=== PATIENT | female | born 1950 | race Caucasian/White ===

== ENCOUNTER 2016-10-29 08:55 | Outpatient (CLI) | payer OTHER | END 2016-10-29 08:56 | disposition home or self-care (01) | DX: R92.8 Other abnormal and inconclusive findings on diagnostic imaging of breast (principal) ==

== ENCOUNTER 2016-11-27 08:29 | Outpatient (CLI) | payer OTHER | END 2016-11-27 08:30 | disposition home or self-care (01) | DX: E03.9 Hypothyroidism, unspecified (principal); N95.1 Menopausal and female climacteric states ==

== ENCOUNTER 2017-02-07 12:57 | Outpatient (CLI) | payer OTHER | END 2017-02-07 12:58 | disposition short-term general hospital (02) | LOC: EMS 12:57 | PROVIDERS: ATTEND Surgery | DX: R10.9 Unspecified abdominal pain (principal); R07.81 Pleurodynia; V80.010A Animal-rider injured by fall from or being thrown from horse in noncollision accident, initial encounter | CPT/HCPCS: A0170; A0425; A0427 ==

== ENCOUNTER 2017-02-23 13:26 | Outpatient (CLI) | payer OTHER | END 2017-02-23 13:27 | disposition home or self-care (01) | LOC: LAB.F 13:26 | PROVIDERS: ATTEND Naturopath | DX: N95.1 Menopausal and female climacteric states (principal); E03.9 Hypothyroidism, unspecified | CPT/HCPCS: 36415; 82728 ==

== ENCOUNTER 2017-04-21 18:51 | Outpatient (CLI) | payer OTHER | END 2017-04-21 18:52 | disposition critical access hospital (66) | LOC: EMS 18:51 | PROVIDERS: ATTEND Surgery | DX: M54.2 Cervicalgia (principal); W22.8XXA Striking against or struck by other objects, initial encounter; Y93.52 Activity, horseback riding; Y92.009 Unspecified place in unspecified non-institutional (private) residence as the place of occurrence of the external cause | CPT/HCPCS: A0425; A0429 ==

== ENCOUNTER 2017-04-21 19:31 | Emergency (ER) | payer OTHER ==
[2017-04-21] MEDS ORDERED: KETOROLAC 60 MG/2 ML VIAL IM STA (20:22)
--- NOTE | 2017-04-21 20:37 | CT Preliminary Report ---
Exam: CT Head W/O IMPRESSION: No acute intracranial abnormality. [facility] SITE ID: [id number]
--- NOTE | 2017-04-21 20:39 | CT Preliminary Report ---
Exam: CT Cervical Spine W/O IMPRESSION: 1. No acute bony abnormality. 2. Greatest degree of central spinal canal stenosis is [id number] at C5-C6. 3. Multilevel marked bony neuroforaminal compromise. [facility] SITE ID: [id number]
--- NOTE | 2017-04-21 20:39 | CT Report ---
EXAM: CT HEAD EXAM DATE: 04/21/2017 08:02 PM. CLINICAL HISTORY: Fall off horse, head/neck injury. COMPARISON: None. TECHNIQUE: Multiaxial CT images were obtained from the foramen magnum to the vertex. IV contrast: Non e. Reformats: Coronal. In accordance with CT protocol optimization, one or more of the following dose reduction techniques w ere utilized for this exam: automated exposure control, adjustment of mA and/or KV based on patient s ize, or use of iterative reconstructive technique. FINDINGS: Parenchyma: No intraparenchymal hemorrhage. No evidence of mass, midline shift, or CT findings of inf arction. Roblero-white differentiation is distinct. Extraaxial Spaces: Normal for age. No subdural or epidural collections identified. Ventricles: Normal in size and position. Sinuses: Imaged paranasal sinuses, orbits, and mastoids show no significant abnormality. Bones: No evidence of fracture or calvarial defect. Other: None. IMPRESSION: No acute intracranial abnormality. [facility] Referring Provider Line: [phone] SITE ID: [id number]
[2017-04-21 20:41] VITALS: BP 123/73
--- NOTE | 2017-04-21 21:01 | CT Report ---
EXAM: CT CERVICAL SPINE WITHOUT CONTRAST DATE: 04/21/2017 08:23 PM HISTORY: Patient hit head on tree when riding horse. Patient heard and felt a "crack" as her head whi pped back. Numbness and dysesthesias bilateral fourth and fifth fingers. COMPARISONS: None. TECHNIQUE: Thin-section axial images were acquired of the cervical spine without contrast. Post-proce ssing: Coronal and sagittal reformats. Other: None. In accordance with CT protocol optimization, one or more of the following dose reduction techniques w ere utilized for this exam: automated exposure control, adjustment of mA and/or KV based on patient s ize, or use of iterative reconstructive technique. FINDINGS: Alignment: Normal. No scoliosis or spondylolisthesis. Bones: No fracture or bone lesion. Interspace Levels/Facets: C1-C2: Unremarkable. C2-C3: Normal caliber. Old small right-sided disk herniation. Marked right C2-C3 neural foraminal com promise. C3-C4: Mildly narrowed. Moderate bilateral C3-C4 bony neural foraminal compromise. C4-C5: Moderately to markedly narrowed with vacuum disk phenomena. Marked bilateral C4-C5 bony neural foraminal compromise. C5-C6: Moderate to markedly narrowed with vacuum disk phenomena. Old moderate left-sided disk herniat ion with mild to moderate central spinal canal stenosis. Marked bilateral C5-C6 bony neural foraminal compromise. C6-C7: Moderate to markedly narrowed with vacuum disk phenomena. Marked bilateral C6-C7 neural forami nal compromise. Mild central spinal canal stenosis. C7-T1: Marked degenerative changes right C7-T1 facet. Moderate to marked bilateral C7-T1 neural rosi inal compromise. Musculature: Normal. No fatty atrophy. Other: The paravertebral and prevertebral soft tissues are normal. The lung apices are clear. IMPRESSION: 1. No acute bony abnormality. 2. Greatest degree of central spinal canal stenosis is [id number] at C5-C6. 3. Multilevel marked bony neural foraminal compromise. [facility] Referring Provider Line: [phone] SITE ID: [id number]
[2017-04-21] MEDS ORDERED: HYDROcod/ACET 5/325 Prepack 6 PO ONE ×2 (21:27→21:37)
--- NOTE | 2017-04-21 21:30 | ED Physician Documentation ---
PD HPI HEAD INJURY - Stated complaint Stated Complaint: FALL FROM HORSE/HEAD INJU - Chief complaint Chief Complaint: Trauma Hd/Nk - History obtained from History obtained from: Patient, EMS - History of Present Illness Mechanism of head injury: Fell, Other (hit head on an awning when riding her horse tonight. Was wearing a helmet.) Where head injury occurred: Home Timing - onset: How many hours ago (1) Pain level max: 7 Pain level now: 6 Location of injury: Front, Back Quality of pain: Throbbing, Aching, Dull Associated symptoms: Neck pain (Patient states posterior neck pain. States heard a snap). No: LOC, AMS, Amnesia, Nausea / vomiting, Paresthesias, Seizures , Ear drainage, Nasal drainage Symptoms improve with: Rest Symptoms worsen with: Palpation, Movement Contributing factors: No: Anticoagulated, Intoxicated Similar symptoms before: Has not had sx before Recently seen: Not recently seen Review of Systems Constitutional: denies: Fever Eyes: denies: Decreased vision, Photophobia GI: denies: Abdominal Pain, Nausea, Vomiting Musculoskeletal: denies: Back pain, Extremity pain, Joint pain Neurologic: denies: Focal weakness, Numbness, Confused, Altered mental status PD PAST MEDICAL HISTORY - Past Medical History Past Medical History: Yes Cardiovascular: None Respiratory: Asthma Endocrine/Autoimmune: HyPOthyroidism GI: None HEENT: None Psych: Depression Musculoskeletal: None Derm: None - Past Surgical History Past Surgical History: Yes /ENDOSCOPY TECH: Hysterectomy - Present Medications Home Medications: Ambulatory Orders Medication Instructions Recorded Confirmed Escitalopram Oxalate [Lexapro] 20 mg PO DAILY 04/21/17 04/21/17 Fluticasone [Flonase] 1 sprays MISTY DAILY 04/21/17 04/21/17 Levothyroxine Sodium [Synthroid] 100 mcg PO DAILY 04/21/17 04/21/17 Liothyronine [Cytomel] 5 mcg PO QDAC 04/21/17 04/21/17 - Allergies Allergies/Adverse Reactions: Allergies Allergy/AdvReac Type Severity Reaction Status Date / Time amiodarone Allergy Unknown Verified 04/21/17 19:49 soy Allergy Rash Verified 04/21/17 20:14 wheat Allergy Rash Verified 04/21/17 20:14 morphine AdvReac Rash Verified 04/21/17 19:49 NSAIDS (Non-Steroidal AdvReac Respiratory Verified 04/21/17 19:49 Anti-Inflamma Sulfa (Sulfonamide AdvReac Unknown Verified 04/21/17 19:49 Antibiotics) Rhymol Allergy Unknown Uncoded 04/21/17 19:49 - Social History Does the pt smoke?: No Smoking Status: Never smoker Does the pt drink ETOH?: No Does the pt have substance abuse?: No - Immunizations Immunizations are current?: Yes - POLST Patient has POLST: No PD ED PE NORMAL - Vitals Vital signs reviewed: Yes - General General: Alert and oriented X 3, No acute distress, Well developed/nourished - HEENT HEENT: Atraumatic (No scalp hematomas or abrasions. There is tenderness to the occipital area of the skull. 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, No motor deficit, No sensory deficit, Normal speech - Psych Psych: Normal mood, Normal affect Results - Vitals Vitals: Oxygen O2 Source Room air - Rads (name of study) CT head Radiology: Prelim report reviewed, EMP read contemporaneously, See rad report ( No acute intracranial abnormality) CT cervical spine Radiology: Prelim report reviewed, EMP read contemporaneously, See rad report ( No acute fracture) PD MEDICAL DECISION MAKING - ED course Complexity details: reviewed results, re-evaluated patient, considered differential, d/w patient ED course: Patient is a 66-year-old female who presents to the emergency department after hitting her head while riding a horse. No acute findings on CT scan of the head or neck. No other tenderness on exam. Normal neurological examination. Abdomen remained soft, nontender nondistended on serial exam. Toradol improved her pain. We will continue supportive care and follow-up with her doctor for further evaluation. Patient counseled regarding signs and symptoms for which I believe and urgent re-evaluation would be necessary. Patient with good understanding of and agreement to plan and is comfortable going home at this time This document was made in part using voice recognition software. While efforts are made to proofread this document, sound alike and grammatical errors may occur. Patient is ambulating well in the emergency department. Departure - Departure Disposition: 01 Home, Self Care Clinical Impression: Neck muscle strain Qualifiers: Encounter type: initial encounter Qualified Code(s): S16.1XXA - Strain of muscle, fascia and tendon at neck level, initial encounter Closed head injury Qualifiers: Encounter type: initial encounter Qualified Code(s): S09.90XA - Unspecified injury of head, initial encounter Condition: Good Instructions: ED Head Injury Closed, ED Sprain Strain Neck Follow-Up: Mara Carvajal ND [Primary Care Provider] - Within 1 week Comments: Return if you worsen. This should improve over the next few days. Do not drink alcohol or drive while on narcotic pain medicine. Note that many narcotic pain relievers also contain tylenol/acetaminophen. Please ensure that your total dose of acetaminophen from all sources does not exceed 3 grams (3000mg) per day. You may constipated on this medication, take a stool softener such as "Colace" twice a day while you are on it. Also recommend a opse-kec-nahntom laxative such as senna or MiraLAX any day that you do not have a bowel movement. If you received narcotic pain medication in the emergency department, do not drive or operate machinery for the next 24 hours. Discharge Date/Time: 04/21/17 22:19
== END 2017-04-21 22:19 | disposition home or self-care (01) ==
LOC: EDUNIT# → EDSEX → ED 19:31 → SUPCPDRO 19:31 → ED 22:19
DX: S16.1XXA Strain of muscle, fascia and tendon at neck level, initial encounter (principal); S09.90XA Unspecified injury of head, initial encounter; V80.010A Animal-rider injured by fall from or being thrown from horse in noncollision accident, initial encounter
CPT/HCPCS: 70450; 72125; 96372; 99283; 99284

== ENCOUNTER 2018-02-07 15:13 | Outpatient (CLI) | payer OTHER ==
[2018-02-07 18:00] LABS: THYROID STIMULATING HORMONE 0.24 uIU/mL (0.34-5.60)
[2018-02-07 18:02] LABS: FREE T4 (FREE THYROXINE) 0.8 ng/dL (0.58-1.64)
== END 2018-02-07 15:14 | disposition home or self-care (01) ==
LOC: LAB.F 15:13
PROVIDERS: ATTEND Naturopath
DX: E03.9 Hypothyroidism, unspecified (principal); N95.1 Menopausal and female climacteric states
CPT/HCPCS: 84439; 84443; 84481

== ENCOUNTER 2018-02-08 08:00 | Outpatient (CLI) | payer OTHER | END 2018-02-08 08:01 | LOC: LAB.R 08:00 | PROVIDERS: ATTEND Naturopath | DX: Z53.9 Procedure and treatment not carried out, unspecified reason (principal) ==

== ENCOUNTER 2018-03-25 08:30 | Outpatient (CLI) | payer OTHER ==
[2018-03-25 17:50] LABS: THYROID STIMULATING HORMONE 0.24 uIU/mL (0.34-5.60)
[2018-03-25 17:52] LABS: FREE T4 (FREE THYROXINE) 0.88 ng/dL (0.58-1.64)
== END 2018-03-25 08:31 | disposition home or self-care (01) ==
LOC: LAB.F 08:30
PROVIDERS: ATTEND Naturopath
DX: E03.9 Hypothyroidism, unspecified (principal); N95.1 Menopausal and female climacteric states
CPT/HCPCS: 36415; 82670; 84439; 84443; 84481

== ENCOUNTER 2018-11-15 08:00 | Outpatient (CLI) | payer BC ==
[2018-11-15 10:50] LABS: BASOPHILS % (AUTO) 1.1 %; EOSINOPHILS # (AUTO) 0.2 10^3/uL (0.0-0.7); EOSINOPHILS % (AUTO) 4.2 %; HGB - HEMOGLOBIN 14.2 g/dL (12.0-16.0); LYMPHOCYTES # (AUTO) 1.1 10^3/uL (1.5-3.5); LYMPHOCYTES % (AUTO) 25.4 %; MEAN CORPUSCULAR HEMOGLOBIN 31.5 pg (27.0-31.0); MEAN CORPUSCULAR HGB CONC 34.6 g/dL (32.0-36.0); MEAN CORPUSCULAR VOLUME 90.9 fL (81.0-99.0); MEAN PLATELET VOLUME 8.7 fL (7.9-10.8); MONOCYTES # (AUTO) 0.4 10^3/uL (0.0-1.0); MONOCYTES % (AUTO) 8.8 %; NEUTROPHILS # (AUTO) 2.6 10^3/uL (1.5-6.6); NEUTROPHILS % (AUTO) 60.5 %; PLT - PLATELET COUNT 257 10^3/uL (130-450); RED BLOOD COUNT 4.51 10^6/uL (4.20-5.40); RED CELL DISTRIBUTION WIDTH 12.5 % (12.0-15.0); WHITE BLOOD COUNT 4.3 x10^3/uL (4.8-10.8)
[2018-11-15 11:01] LABS: ALBUMIN 3.7 g/dL (3.2-5.5); ALBUMIN/GLOBULIN RATIO 1.3 (1.0-2.2); ALKALINE PHOSPHATASE 42 IU/L (42-121); ALT ALANINE AMINOTRANSFERASE 20 IU/L (10-60); AST ASPARTATE AMINOTRANSFERASE 23 IU/L (10-42); BILIRUBIN,TOTAL 0.6 mg/dL (0.2-1.0); BUN - BLOOD UREA NITROGEN 24 mg/dL (6-20); CALCIUM 8.9 mg/dL (8.5-10.3); CARBON DIOXIDE - CO2 25 mmol/L (21-32); CHLORIDE 103 mmol/L (101-111); CHOL/HDL RATIO 2.6 (<4.4); CHOLESTEROL 180 mg/dL; CREATININE 1.1 mg/dL (0.4-1.0); GFR - MDRD 50 (>89); GLUCOSE 91 mg/dL (70-100); HDL CHOLESTEROL 68 mg/dL; LDL CHOLESTEROL,CALCULATED 94 mg/dL; LDL/HDL RATIO 1.4 (<4.4); SODIUM 136 mmol/L (135-145); TOTAL PROTEIN 6.5 g/dL (6.7-8.2); VLDL CHOLESTEROL 18 mg/dL
[2018-11-15 11:11] LABS: THYROID STIMULATING HORMONE 0.34 uIU/mL (0.34-5.60)
[2018-11-15 11:16] LABS: FERRITIN 29.9 ng/mL (11.0-306.8)
== END 2018-11-15 23:59 | disposition home or self-care (01) ==
LOC: LAB.F 08:00
PROVIDERS: ATTEND Naturopath
DX: E03.9 Hypothyroidism, unspecified (principal); N95.1 Menopausal and female climacteric states; G43.909 Migraine, unspecified, not intractable, without status migrainosus
CPT/HCPCS: 36415; 80053; 80061; 82306; 82728; 83721; 84443; 85025; 86376

== ENCOUNTER 2019-01-10 16:15 | Outpatient (CLI) | payer BC ==
--- NOTE | 2019-01-11 11:36 | DEXA Report ---
Reason: MENOPAUSAL, HYPOTHYROIDISM Procedure Date: 01/10/2019 Accession Number: [id number] / [id number] Procedure: DEX - Dexa Spine and/or Hip CPT Code: FULL RESULT: EXAM: Dexa Spine and/or Hip DATE: 01/10/2019 4:38 PM CLINICAL HISTORY: MENOPAUSAL, HYPOTHYROIDISM TECHNIQUE: Dual energy x-ray absorptiometry (DXA) was performed on a [employer] System. Regions measured are the AP Spine, femoral neck, and if needed forearm. COMPARISON: None. In accordance with the International Society for Clinical Densitometry (ISCD) guidelines, data from previous exams may be reanalyzed using current recommendations and techniques. This is done to allow a more accurate basis for comparison with the current study. FINDINGS: The data for the lumbar spine is as follows: BMD (g/cm/cm) T-SCORE Z-SCORE REGION L1 1.255 1.0 2.7 L2 1.617 3.5 5.1 L3 1.885 5.7 7.3 L4 2.033 6.9 8.6 TOTAL 1.725 4.5 6.2 NOTE: All evaluable vertebrae are used for classification The data for the hip is as follows: BMD (g/cm/cm) T-SCORE Z-SCORE REGION Neck 1.040 0.0 1.5 TOTAL 0.914 -0.7 0.5 NOTE: The femoral neck or total proximal femur, whichever is lowest, is used for classification. IMPRESSION: THE WHO CLASSIFICATION BASED ON THE INTERNATIONAL REFERENCE STANDARD IS NORMAL. THE FRACTURE RISK IS NOT INCREASED. RECOMMENDATION: Patients with diagnosis of osteoporosis or osteopenia should have regular bone mineral density assessment. For those eligible for Medicare, routine testing is allowed once every 2 years. Testing frequency can be increased for patients who have rapidly progressing disease or for those who are receiving medical therapy to restore bone mass. COMMENT: World Health Organization (WHO) definitions for osteoporosis and osteopenia: NORMAL BMD: T-score at -1.0 or higher, fracture risk is low OSTEOPENIA BMD: T-score between -1.0 and -2.5, fracture risk is increased. OSTEOPOROSIS BMD: T-score at -2.5 or lower, fracture risk is high. National Osteoporosis Foundation recommends: 1. Obtain adequate dietary calcium (at least 1200 mg per day) and vitamin D (400-800 international units per day). 2. Participate, as appropriate, in regular weightbearing and muscle-strengthening exercise. 3. Avoid tobacco use and reduce alcohol and caffeine intake. 4. For more detailed information see the website at www.NOF.org.
== END 2019-01-10 16:16 | disposition home or self-care (01) ==
LOC: DI 16:15
PROVIDERS: ATTEND Naturopath
DX: E03.9 Hypothyroidism, unspecified (principal); N95.1 Menopausal and female climacteric states
CPT/HCPCS: 77080

== ENCOUNTER 2019-01-10 16:17 | Outpatient (CLI) | payer BC ==
--- NOTE | 2019-01-11 08:16 | Mammography Report ---
Reason: SCREENING MAMMO Procedure Date: 01/10/2019 Accession Number: [id number] / [id number] Procedure: DENNIS - Screening Mammo w/Kelechi CPT Code: FULL RESULT: EXAM: Screening Mammo w/Kelechi DATE: 01/10/2019 5:06 PM CLINICAL HISTORY: Screening encounter. History of benign left breast biopsy. No reported risk factors. TECHNIQUE: (B) - Bilateral CC, laterally exaggerated CC, MLO views were obtained. COMPARISON: 10/29/2016 through 09/03/2009. PARENCHYMAL PATTERN: (D) - The breast(s) demonstrate(s) heterogeneously dense fibroglandular parenchyma. FINDINGS: A left breast biopsy marker is again seen. There are no suspicious masses, calcifications, or areas of distortion. IMPRESSION: Benign findings. BI-RADS category 2. RECOMMENDATION: (ANNUAL) - Recommend routine annual screening mammography. BI-RADS CATEGORY: (2) - Benign Findings. STANDARD QUALIFYING STATEMENTS: 1. This examination was not reviewed with the aid of Computer-Aided Detection (CAD). 2. A negative or benign imaging report should not preclude biopsy if clinically suspicious findings are present. 3. Dense breasts may obscure an underlying neoplasm. 4. This examination was reviewed with the aid of 3D breast imaging (tomosynthesis).
== END 2019-01-10 16:18 | disposition home or self-care (01) ==
LOC: DI 16:17
DX: Z12.31 Encounter for screening mammogram for malignant neoplasm of breast (principal)
CPT/HCPCS: 77063; 77067

== ENCOUNTER 2019-01-24 09:14 | Outpatient (CLI) | payer BC ==
[2019-01-24 17:27] LABS: BASOPHILS # (AUTO) 0.1 10^3/uL (0.0-0.1); BASOPHILS % (AUTO) 1.3 %; EOSINOPHILS # (AUTO) 0.1 10^3/uL (0.0-0.7); EOSINOPHILS % (AUTO) 2.1 %; HGB - HEMOGLOBIN 14.2 g/dL (12.0-16.0); LYMPHOCYTES # (AUTO) 1.2 10^3/uL (1.5-3.5); LYMPHOCYTES % (AUTO) 24.1 %; MEAN CORPUSCULAR HEMOGLOBIN 30.5 pg (27.0-31.0); MEAN CORPUSCULAR HGB CONC 33.6 g/dL (32.0-36.0); MEAN CORPUSCULAR VOLUME 90.8 fL (81.0-99.0); MEAN PLATELET VOLUME 8.4 fL (7.9-10.8); MONOCYTES # (AUTO) 0.3 10^3/uL (0.0-1.0); MONOCYTES % (AUTO) 5.6 %; NEUTROPHILS # (AUTO) 3.2 10^3/uL (1.5-6.6); NEUTROPHILS % (AUTO) 66.9 %; PLT - PLATELET COUNT 247 10^3/uL (130-450); RED BLOOD COUNT 4.66 10^6/uL (4.20-5.40); RED CELL DISTRIBUTION WIDTH 12.7 % (12.0-15.0); WHITE BLOOD COUNT 4.9 x10^3/uL (4.8-10.8)
[2019-01-24 17:40] LABS: ALBUMIN/GLOBULIN RATIO 1.5 (1.0-2.2); BILIRUBIN,TOTAL 0.7 mg/dL (0.2-1.0); CALCIUM 9.2 mg/dL (8.5-10.3); CREATININE 0.8 mg/dL (0.4-1.0); TOTAL PROTEIN 6.6 g/dL (6.7-8.2)
== END 2019-01-24 09:15 | disposition home or self-care (01) ==
LOC: LAB.F 09:14
PROVIDERS: ATTEND Registered Nurse
DX: E03.9 Hypothyroidism, unspecified (principal); R79.89 Other specified abnormal findings of blood chemistry; N95.1 Menopausal and female climacteric states; G43.909 Migraine, unspecified, not intractable, without status migrainosus
CPT/HCPCS: 36415; 80053; 82728; 84443; 85025

== ENCOUNTER 2019-04-25 18:15 | Outpatient (CLI) | payer BC | END 2019-04-25 18:16 | disposition short-term general hospital (02) | LOC: EMS 18:15 | PROVIDERS: ATTEND Surgery | DX: M25.511 Pain in right shoulder (principal); M54.6 Pain in thoracic spine; R07.89 Other chest pain; S51.811A Laceration without foreign body of right forearm, initial encounter; V80.010A Animal-rider injured by fall from or being thrown from horse in noncollision accident, initial encounter; Y93.52 Activity, horseback riding; Y92.008 Other place in unspecified non-institutional (private) residence as the place of occurrence of the external cause | CPT/HCPCS: A0425; A0427 ==

== ENCOUNTER 2019-08-31 07:05 | Outpatient (CLI) | payer BC ==
[2019-08-31 10:28] LABS: BASOPHILS # (AUTO) 0.1 10^3/uL (0.0-0.1); BASOPHILS % (AUTO) 1.7 %; EOSINOPHILS # (AUTO) 0.2 10^3/uL (0.0-0.7); EOSINOPHILS % (AUTO) 4.7 %; HGB - HEMOGLOBIN 15.1 g/dL (12.0-16.0); LYMPHOCYTES # (AUTO) 1.3 10^3/uL (1.5-3.5); LYMPHOCYTES % (AUTO) 31.7 %; MEAN CORPUSCULAR HEMOGLOBIN 31.2 pg (27.0-31.0); MEAN CORPUSCULAR HGB CONC 33.7 g/dL (32.0-36.0); MEAN CORPUSCULAR VOLUME 92.6 fL (81.0-99.0); MEAN PLATELET VOLUME 10.4 fL (7.9-10.8); MONOCYTES # (AUTO) 0.4 10^3/uL (0.0-1.0); MONOCYTES % (AUTO) 8.7 %; NEUTROPHILS # (AUTO) 2.1 10^3/uL (1.5-6.6); PLT - PLATELET COUNT 265 10^3/uL (130-450); RED BLOOD COUNT 4.84 10^6/uL (4.20-5.40); RED CELL DISTRIBUTION WIDTH 11.6 % (12.0-15.0)
[2019-08-31 11:02] LABS: THYROID STIMULATING HORMONE 0.92 uIU/mL (0.34-5.60)
[2019-08-31 11:08] LABS: FERRITIN 28.5 ng/mL (11.0-306.8)
== END 2019-08-31 07:06 | disposition home or self-care (01) ==
LOC: LAB.S 07:05
PROVIDERS: ATTEND Naturopath
DX: N95.1 Menopausal and female climacteric states (principal); E03.9 Hypothyroidism, unspecified; G43.909 Migraine, unspecified, not intractable, without status migrainosus
CPT/HCPCS: 36415; 82670; 82728; 84443; 85025

== ENCOUNTER 2019-12-12 11:50 | Outpatient (CLI) | payer BC ==
[2019-12-12 17:11] LABS: BASOPHILS % (AUTO) 0.9 %; EOSINOPHILS # (AUTO) 0.1 10^3/uL (0.0-0.7); EOSINOPHILS % (AUTO) 3.2 %; LYMPHOCYTES # (AUTO) 1.2 10^3/uL (1.5-3.5); LYMPHOCYTES % (AUTO) 27.8 %; MEAN CORPUSCULAR HEMOGLOBIN 31.5 pg (27.0-31.0); MEAN CORPUSCULAR HGB CONC 33.4 g/dL (32.0-36.0); MEAN CORPUSCULAR VOLUME 94.2 fL (81.0-99.0); MEAN PLATELET VOLUME 10.3 fL (7.9-10.8); MONOCYTES # (AUTO) 0.4 10^3/uL (0.0-1.0); MONOCYTES % (AUTO) 8.7 %; NEUTROPHILS # (AUTO) 2.6 10^3/uL (1.5-6.6); NEUTROPHILS % (AUTO) 58.9 %; PLT - PLATELET COUNT 243 10^3/uL (130-450); RED BLOOD COUNT 4.45 10^6/uL (4.20-5.40); RED CELL DISTRIBUTION WIDTH 12.3 % (12.0-15.0); WHITE BLOOD COUNT 4.4 x10^3/uL (4.8-10.8)
[2019-12-12 17:28] LABS: ALBUMIN/GLOBULIN RATIO 1.4 (1.0-2.2); ALKALINE PHOSPHATASE 36 IU/L (42-121); ALT ALANINE AMINOTRANSFERASE 40 IU/L (10-60); AST ASPARTATE AMINOTRANSFERASE 34 IU/L (10-42); BILIRUBIN,TOTAL 1.1 mg/dL (0.2-1.0); BUN - BLOOD UREA NITROGEN 23 mg/dL (6-20); CALCIUM 8.9 mg/dL (8.5-10.3); CARBON DIOXIDE - CO2 27 mmol/L (21-32); CHLORIDE 101 mmol/L (101-111); CHOL/HDL RATIO 2.6 (<4.4); CHOLESTEROL 199 mg/dL; CREATININE 0.6 mg/dL (0.4-1.0); GLUCOSE 90 mg/dL (70-100); HDL CHOLESTEROL 78 mg/dL; SODIUM 137 mmol/L (135-145); TOTAL PROTEIN 6.8 g/dL (6.7-8.2)
[2019-12-12 17:40] LABS: FERRITIN 39.8 ng/mL (11.0-306.8)
[2019-12-12 17:44] LABS: FOLATE 13.88 ng/mL (5.90 - >24.8)
== END 2019-12-12 11:51 | disposition home or self-care (01) ==
LOC: LAB.S 11:50
PROVIDERS: ATTEND Naturopath
DX: N95.1 Menopausal and female climacteric states (principal); E03.9 Hypothyroidism, unspecified
CPT/HCPCS: 36415; 80053; 80061; 82607; 82670; 82728; 82746; 83721; 85025

== ENCOUNTER 2019-12-15 20:40 | Outpatient (CLI) | payer BC | END 2019-12-15 20:41 | disposition home or self-care (01) | LOC: COV 20:40 | PROVIDERS: ATTEND Family Medicine | DX: R05 Cough (principal) ==

== ENCOUNTER 2020-02-20 07:09 | Outpatient (CLI) | payer BC ==
[2020-02-20 15:40] LABS: BASOPHILS % (AUTO) 0.8 %; EOSINOPHILS # (AUTO) 0.1 10^3/uL (0.0-0.7); EOSINOPHILS % (AUTO) 2.2 %; HGB - HEMOGLOBIN 13.4 g/dL (12.0-16.0); LYMPHOCYTES # (AUTO) 1.2 10^3/uL (1.5-3.5); MEAN CORPUSCULAR HEMOGLOBIN 30.5 pg (27.0-31.0); MEAN CORPUSCULAR HGB CONC 32.1 g/dL (32.0-36.0); MEAN CORPUSCULAR VOLUME 94.8 fL (81.0-99.0); MEAN PLATELET VOLUME 10.6 fL (7.9-10.8); MONOCYTES # (AUTO) 0.4 10^3/uL (0.0-1.0); MONOCYTES % (AUTO) 6.9 %; NEUTROPHILS # (AUTO) 3.3 10^3/uL (1.5-6.6); NEUTROPHILS % (AUTO) 65.7 %; PLT - PLATELET COUNT 225 10^3/uL (130-450)
[2020-02-20 16:15] LABS: FOLATE 16.17 ng/mL (5.90 - >24.8)
== END 2020-02-20 07:10 | disposition home or self-care (01) ==
LOC: LAB.S 07:09
PROVIDERS: ATTEND Naturopath
DX: N95.1 Menopausal and female climacteric states (principal); E53.8 Deficiency of other specified B group vitamins; E03.9 Hypothyroidism, unspecified
CPT/HCPCS: 36415; 82607; 82746; 85025

== ENCOUNTER 2020-07-31 07:29 | Outpatient (CLI) | payer BC ==
[2020-07-31 15:44] LABS: FERRITIN 32.6 ng/mL (11.0-306.8)
[2020-07-31 15:47] LABS: FOLATE 9.3 ng/mL (5.90 - >24.8)
== END 2020-07-31 07:30 | disposition home or self-care (01) ==
LOC: LAB.S 07:29
PROVIDERS: ATTEND Naturopath
DX: N95.1 Menopausal and female climacteric states (principal); E03.9 Hypothyroidism, unspecified; G43.909 Migraine, unspecified, not intractable, without status migrainosus
CPT/HCPCS: 36415; 82306; 82607; 82670; 82728; 82746

== ENCOUNTER 2020-10-08 17:10 | Outpatient (CLI) | payer BC ==
--- NOTE | 2020-10-10 09:47 | Mammography Report ---
BILATERAL DIGITAL SCREENING MAMMOGRAM 3D/2D: 10/08/2020 CLINICAL: Routine screening. Comparison is made to exams dated: 01/10/2019 mammogram, 10/29/2016 mammogram, 01/24/2016 mammogram, 01/13 mammogram, 01/03/2016 mammogram, and 11/14/2014 mammogram - [facility]. The ti ssue of both breasts is heterogeneously dense. This may lower the sensitivity of mammography. There is a biopsy clip in the left breast. No significant masses, calcifications, or other findings are seen in either breast. There has been no significant interval change. IMPRESSION: NEGATIVE There is no mammographic evidence of malignancy. A 1 year screening mammogram is recommended. This exam was interpreted at Station ID: [id number]. NOTE: For mammograms, a report in lay terms will be sent to the patient. Approximately 15% of breast malignancies will not be visualized mammographically. In the management of a palpable breast mass, a negative mammogram must not discourage biopsy of a clinically suspicious lesion. Electronically Signed By: Dom Morel M.D. [facility] [place]:10/09/2020 11:43:44 ACR BI-RADS Category 1: Negative 3341F PARENCHYMAL PATTERN: (D) - The breast(s) demonstrate(s) heterogeneously dense fibroglandular stephenie villalobos. BI-RADS CATEGORY: (1) - 1 RECOMMENDATION: (ANNUAL) - Recommend routine annual screening mammography. [id number] 1 year screening LATERALITY: (B)
== END 2020-10-08 17:11 | disposition home or self-care (01) ==
LOC: DI.S 17:10
DX: Z12.31 Encounter for screening mammogram for malignant neoplasm of breast (principal)

== ENCOUNTER 2020-11-08 07:43 | Outpatient (CLI) | payer BC ==
[2020-11-08 15:16] LABS: THYROID STIMULATING HORMONE 1.05 uIU/mL (0.34-5.60)
[2020-11-08 15:18] LABS: FREE T4 (FREE THYROXINE) 0.79 ng/dL (0.58-1.64)
[2020-11-08 15:23] LABS: TOTAL T3 1.04 ng/mL (0.87-1.78)
[2020-11-08 15:25] LABS: FERRITIN 39.5 ng/mL (11.0-306.8)
[2020-11-08 15:28] LABS: FOLATE 8.99 ng/mL (5.90 - >24.8)
== END 2020-11-08 07:44 | disposition home or self-care (01) ==
LOC: LAB.S 07:43
PROVIDERS: ATTEND Naturopath
DX: N95.1 Menopausal and female climacteric states (principal); E03.9 Hypothyroidism, unspecified
CPT/HCPCS: 36415; 82306; 82607; 82728; 82746; 84439; 84443; 84480

== ENCOUNTER 2021-01-11 09:27 | Outpatient (CLI) | payer BC ==
[2021-01-11 16:24] LABS: FERRITIN 30.5 ng/mL (11.0-306.8)
[2021-01-11 16:29] LABS: FOLATE 7.71 ng/mL (5.90 - >24.8)
== END 2021-01-11 09:28 | disposition home or self-care (01) ==
LOC: LAB.S 09:27
PROVIDERS: ATTEND Naturopath
DX: N95.1 Menopausal and female climacteric states (principal); E03.9 Hypothyroidism, unspecified; G47.00 Insomnia, unspecified
CPT/HCPCS: 36415; 82306; 82607; 82728; 82746

== ENCOUNTER 2021-03-04 07:51 | Day surgery (SDC) | payer BC ==
[2021-03-04] MEDS ORDERED: LACTATED RINGERS 1,000 ML IV ONE ×2 (08:35→10:06)
--- NOTE | 2021-03-04 08:53 | ANESTHESIA ---
Pre-Anesthesia VS, & Labs - Diagnosis screening - Procedure colonoscopy Vital Signs: Temp Pulse Resp BP Pulse Ox 36.2 C L 70 16 140/80 H 98 03/04/21 08:14 03/04/21 08:14 03/04/21 08:14 03/04/21 08:14 03/04/21 08:14 Height: 5 ft 5.75 in Weight (kg): 62 kg Body Mass Index: 22.2 BMI Classification: Healthy weight - NPO >8 hours - Is Patient ?: No - Lab Results Current Lab Results: Laboratory Tests 03/04/21 08:31: POC Whole Bld Glucose 83 Lab results reviewed: Yes Home Medications and Allergies Home Medications: Ambulatory Orders Acyclovir 400 mg PO DAILY 03/03/21 Albuterol Sulf [Ventolin Hfa Inhaler] 1 - 2 puffs PO QID PRN 03/03/21 Ascorbic Acid [Vitamin C] 1,000 mg PO DAILY 03/03/21 Bio Identical Estrogen Creme 2 mg DAILY 03/03/21 Bio Identical Estrogen Drops 5 mg PO DAILY 03/03/21 Calcium Carbonate [Calcium] 1,000 mg PO DAILY 03/03/21 Cetirizine HCl [All Day Allergy Relief] 10 mg PO DAILY 03/03/21 Cholecalciferol [Vitamin D3] 10,000 unit PO DAILY 03/03/21 Ferrous Bis-Glycinate Chelate [Iron Glycinate] 2 tab PO DAILY 03/03/21 Glucosamine Sulfate 1,000 mg PO DAILY 03/03/21 Magnesium Oxide [Mag-Oxide] 400 mg PO DAILY 03/03/21 Maxalt 10 mg PO 03/03/21 Mecobalamin [B-12] 5,000 mcg PO 03/03/21 Turmeric Root Extract [Turmeric] 2,000 mg PO DAILY 03/03/21 Vital Eyes 03/03/21 Escitalopram Oxalate [Lexapro] 40 mg PO BID 04/21/17 Fluticasone [Flonase] 1 sprays MISTY DAILY 04/21/17 Levothyroxine Sodium [Synthroid] 88 mcg PO DAILY 04/21/17 Liothyronine [Cytomel] 5 mcg PO DAILY 04/21/17 Acyclovir 400 mg PO DAILY 03/03/21 Albuterol Sulf [Ventolin Hfa Inhaler] 1 - 2 puffs PO QID PRN 03/03/21 Ascorbic Acid [Vitamin C] 1,000 mg PO DAILY 03/03/21 Bio Identical Estrogen Creme 2 mg DAILY 03/03/21 Bio Identical Estrogen Drops 5 mg PO DAILY 03/03/21 Calcium Carbonate [Calcium] 1,000 mg PO DAILY 03/03/21 Cetirizine HCl [All Day Allergy Relief] 10 mg PO DAILY 03/03/21 Cholecalciferol [Vitamin D3] 10,000 unit PO DAILY 03/03/21 Ferrous Bis-Glycinate Chelate [Iron Glycinate] 2 tab PO DAILY 03/03/21 Glucosamine Sulfate 1,000 mg PO DAILY 03/03/21 Magnesium Oxide [Mag-Oxide] 400 mg PO DAILY 03/03/21 Maxalt 10 mg PO 03/03/21 Mecobalamin [B-12] 5,000 mcg PO 03/03/21 Turmeric Root Extract [Turmeric] 2,000 mg PO DAILY 03/03/21 Vital Eyes 03/03/21 Allergies/Adverse Reactions: Allergies Allergy/AdvReac Type Severity Reaction Status Date / Time amiodarone Allergy crystal Verified 03/03/21 12:55 deposits under skin and in eyes ciprofloxacin [From Cipro] Allergy drug Verified 03/03/21 12:53 eruption monosodium glutamate Allergy swelling, Verified 03/03/21 12:53 burning, itching, oxycodone Allergy Hallucinati Verified 03/03/21 12:53 ons soy Allergy Rash Verified 04/21/17 20:14 wheat Allergy Rash Verified 04/21/17 20:14 fentanyl AdvReac hypotention, Verified 03/03/21 12:53 bradycardia, respiratiry depression metronidazole [From Flagyl] AdvReac mouth and Verified 03/03/21 12:53 lips tingling and numbness morphine AdvReac Rash Verified 04/21/17 19:49 NSAIDS (Non-Steroidal AdvReac Respiratory Verified 04/21/17 19:49 Anti-Inflamma Sulfa (Sulfonamide AdvReac nausea Verified 03/03/21 12:53 Antibiotics) vomiting Rhymol Allergy severe Uncoded 03/03/21 12:53 vertigo elevated body temperture AdvReac skin Uncoded 03/03/21 12:57 burning Anes History & Medical History - Anesthetic History Anesthesia Complications: reports: No previous complications Family history of Anesthesia Complications: Denies Family history of Malignant Hyperthermia: Denies - Medical History Cardiovascular: reports: Atrial flutter Pulmonary: reports: Asthma, Pneumonia Gastrointestinal: reports: Other Urinary: reports: Incontinence Musculoskeletal: reports: Osteoarthritis, Gout, Chronic back pain Endocrine/Autoimmune: reports: HyPOthyroidism Skin: reports: Eczema Smoking Status: Never smoker - Surgical History Eyes Ears Nose Throat (EENT): reports: Other Cardiothoracic: reports: Other Gynecologic: reports: Hysterectomy Orthopedic: reports: Other Exam General: Alert, Oriented x3, Cooperative Dental: WNL Mouth Openin Fingerbreadth Neck Mobility: Normal Mallampati classification: II Thyromental Distance: less than 4 cm Respiratory: Lungs clear, Normal breath sounds, No respiratory distress Cardiovascular: Regular rate Neurological: Normal speech Mental/Cognitive Status: Alert/Oriented X3, Normal for patient Cognitive Status: Within normal limits Plan Anesthesia Type: Total IV Consent for Procedure(s) Verified and Reviewed: Yes Code Status: Attempt Resuscitation ASA classification: 3-Severe systemic disease Is this case an emergency?: No
[2021-03-04] MEDS ORDERED: LIDOCAINE-MPF 2% 5 ML VIAL ONE (09:31)
[2021-03-04] MEDS ORDERED: PROPOFOL 200 MG/20 ML VIAL IVP ONE ×2 (09:31→09:47)
[2021-03-04 10:31] VITALS: BP 110/64
--- NOTE | 2021-03-04 14:04 | ANESTHESIA POST OP EVALUATION ---
Anesthesia Post Eval - Post Anesthesia Eval Vitals: Last Vital Signs Temp 36.2 C L 03/04/21 10:17 Pulse 61 03/04/21 10:17 Resp 22 03/04/21 10:17 BP 110/64 03/04/21 10:17 Pulse Ox 100 03/04/21 10:17 CV Function Including HR & BP: Stable Pain Control: Satisfactory Nausea & Vomiting: Negative Mental Status: Baseline Respiratory Status: Airway Patent Hydration Status: Satisfactory Anesthesia Complications: None
== END 2021-03-04 07:52 | disposition home or self-care (01) ==
LOC: SDS 07:51
PROVIDERS: ATTEND Surgery
PROC: 0DJD8ZZ Inspection of Lower Intestinal Tract, Via Natural or Artificial Opening Endoscopic (ICD-10-PCS; principal; 2021-03-04 09:00)
DX: Z12.11 Encounter for screening for malignant neoplasm of colon (principal); K63.89 Other specified diseases of intestine; J45.909 Unspecified asthma, uncomplicated; I48.92 Unspecified atrial flutter; R32 Unspecified urinary incontinence; E03.9 Hypothyroidism, unspecified; M19.90 Unspecified osteoarthritis, unspecified site; M10.9 Gout, unspecified; G89.29 Other chronic pain; M54.5 Low back pain; F98.8 Other specified behavioral and emotional disorders with onset usually occurring in childhood and adolescence; Z87.01 Personal history of pneumonia (recurrent); Z79.899 Other long term (current) drug therapy; Z92.83 Personal history of failed moderate sedation
CPT/HCPCS: G0121; J7120

== ENCOUNTER 2021-07-15 08:00 | Outpatient (CLI) | payer BC ==
[2021-07-15 14:44] LABS: CRP - C-REACTIVE PROTEIN < 1.0 mg/dL (0-1.0)
[2021-07-15 14:55] LABS: THYROID STIMULATING HORMONE 0.32 uIU/mL (0.34-5.60)
[2021-07-15 15:03] LABS: FERRITIN 58.6 ng/mL (11.0-306.8)
[2021-07-15 15:07] LABS: FOLATE 10.14 ng/mL (5.90 - >24.8)
== END 2021-07-15 23:59 | disposition home or self-care (01) ==
LOC: LAB.S 08:00
PROVIDERS: ATTEND Naturopath
DX: N95.1 Menopausal and female climacteric states (principal); B37.3 Candidiasis of vulva and vagina; E03.9 Hypothyroidism, unspecified
CPT/HCPCS: 36415; 82306; 82607; 82670; 82728; 82746; 84443; 84550; 85651; 86140

== ENCOUNTER 2021-08-29 07:09 | Outpatient (CLI) | payer BC ==
[2021-08-29 15:27] LABS: BASOPHILS # (AUTO) 0.1 10^3/uL (0.0-0.1); EOSINOPHILS # (AUTO) 0.2 10^3/uL (0.0-0.7); EOSINOPHILS % (AUTO) 4.3 %; HCT - HEMATOCRIT 40.6 % (37.0-47.0); HGB - HEMOGLOBIN 13.2 g/dL (12.0-16.0); LYMPHOCYTES # (AUTO) 1.2 10^3/uL (1.5-3.5); LYMPHOCYTES % (AUTO) 24.1 %; MEAN CORPUSCULAR HEMOGLOBIN 30.3 pg (27.0-31.0); MEAN CORPUSCULAR HGB CONC 32.5 g/dL (32.0-36.0); MEAN CORPUSCULAR VOLUME 93.3 fL (81.0-99.0); MEAN PLATELET VOLUME 10.5 fL (7.9-10.8); MONOCYTES # (AUTO) 0.4 10^3/uL (0.0-1.0); MONOCYTES % (AUTO) 8.5 %; NEUTROPHILS % (AUTO) 61.5 %; PLT - PLATELET COUNT 254 10^3/uL (130-450); RED BLOOD COUNT 4.35 10^6/uL (4.20-5.40); RED CELL DISTRIBUTION WIDTH 12.2 % (12.0-15.0); WHITE BLOOD COUNT 4.9 x10^3/uL (4.8-10.8)
[2021-08-29 15:40] LABS: ALBUMIN 3.6 g/dL (3.2-5.5); ALBUMIN/GLOBULIN RATIO 1.2 (1.0-2.2); ALKALINE PHOSPHATASE 49 IU/L (42-121); ALT ALANINE AMINOTRANSFERASE 21 IU/L (10-60); AST ASPARTATE AMINOTRANSFERASE 23 IU/L (10-42); BUN - BLOOD UREA NITROGEN 25 mg/dL (6-20); CALCIUM 9.2 mg/dL (8.5-10.3); CARBON DIOXIDE - CO2 30 mmol/L (21-32); CHLORIDE 98 mmol/L (101-111); CHOL/HDL RATIO 2.7 (<4.4); CHOLESTEROL 201 mg/dL; CREATININE 0.9 mg/dL (0.4-1.0); GFR - MDRD 62 (>89); GLUCOSE 82 mg/dL (70-100); HDL CHOLESTEROL 74 mg/dL; LDL CHOLESTEROL,CALCULATED 113 mg/dL; LDL/HDL RATIO 1.5 (<4.4); POTASSIUM 4.3 mmol/L (3.5-5.0); SODIUM 136 mmol/L (135-145); TOTAL PROTEIN 6.6 g/dL (6.7-8.2); TRIGLYCERIDES 72 mg/dL; VLDL CHOLESTEROL 14 mg/dL
[2021-08-29 15:50] LABS: THYROID STIMULATING HORMONE 6.83 uIU/mL (0.34-5.60)
[2021-08-29 15:51] LABS: FREE T3 2.73 pg/mL (2.5-3.9)
[2021-08-29 15:52] LABS: FREE T4 (FREE THYROXINE) 0.62 ng/dL (0.58-1.64)
== END 2021-08-29 07:10 | disposition home or self-care (01) ==
LOC: LAB.S 07:09
PROVIDERS: ATTEND Naturopath
DX: E03.9 Hypothyroidism, unspecified (principal); N95.1 Menopausal and female climacteric states; B37.3 Candidiasis of vulva and vagina
CPT/HCPCS: 36415; 80053; 80061; 83721; 84439; 84443; 84481; 85025

== ENCOUNTER 2021-11-05 07:09 | Outpatient (CLI) | payer BC ==
[2021-11-05 16:09] LABS: CHOL/HDL RATIO 2.7 (<4.4); CHOLESTEROL 183 mg/dL; HDL CHOLESTEROL 67 mg/dL; LDL CHOLESTEROL,CALCULATED 104 mg/dL; LDL/HDL RATIO 1.6 (<4.4); TRIGLYCERIDES 60 mg/dL; VLDL CHOLESTEROL 12 mg/dL
[2021-11-05 16:34] LABS: THYROID STIMULATING HORMONE 0.25 uIU/mL (0.34-5.60)
[2021-11-05 16:39] LABS: FREE T4 (FREE THYROXINE) 0.93 ng/dL (0.58-1.64)
[2021-11-05 17:05] LABS: FREE T3 3.66 pg/mL (2.5-3.9)
== END 2021-11-05 07:10 | disposition home or self-care (01) ==
LOC: LAB.S 07:09
PROVIDERS: ATTEND Naturopath
DX: E03.9 Hypothyroidism, unspecified (principal); N95.1 Menopausal and female climacteric states
CPT/HCPCS: 36415; 80061; 83721; 84439; 84443; 84481; 86376

== ENCOUNTER 2021-12-24 08:00 | Outpatient (CLI) | payer BC ==
[2021-12-24 15:39] LABS: THYROID STIMULATING HORMONE 1.11 uIU/mL (0.34-5.60)
[2021-12-24 15:41] LABS: FREE T3 3.35 pg/mL (2.5-3.9)
[2021-12-24 15:42] LABS: FREE T4 (FREE THYROXINE) 0.9 ng/dL (0.58-1.64)
== END 2021-12-24 08:01 | disposition home or self-care (01) ==
LOC: LAB.S 08:00
PROVIDERS: ATTEND Registered Nurse
DX: E03.9 Hypothyroidism, unspecified (principal); N95.1 Menopausal and female climacteric states
CPT/HCPCS: 36415; 82670; 84439; 84443; 84481

== ENCOUNTER 2022-05-19 07:04 | Outpatient (CLI) | payer BC ==
[2022-05-19 16:06] LABS: ALBUMIN 3.8 g/dL (3.2-5.5); ALBUMIN/GLOBULIN RATIO 1.4 (1.0-2.2); ALKALINE PHOSPHATASE 32 IU/L (42-121); ALT ALANINE AMINOTRANSFERASE 28 IU/L (10-60); AST ASPARTATE AMINOTRANSFERASE 31 IU/L (10-42); BILIRUBIN,TOTAL 0.6 mg/dL (0.2-1.0); BUN - BLOOD UREA NITROGEN 23 mg/dL (6-20); CHOL/HDL RATIO 2.7 (<4.4); CHOLESTEROL 185 mg/dL; CREATININE 0.8 mg/dL (0.4-1.0); GFR - MDRD 71 (>89); HDL CHOLESTEROL 68 mg/dL; LDL CHOLESTEROL,CALCULATED 105 mg/dL; LDL/HDL RATIO 1.5 (<4.4); TOTAL PROTEIN 6.5 g/dL (6.7-8.2); TRIGLYCERIDES 62 mg/dL; VLDL CHOLESTEROL 12 mg/dL
[2022-05-19 16:12] LABS: CALCIUM 8.2 mg/dL (8.5-10.3); CARBON DIOXIDE - CO2 27 mmol/L (21-32); CHLORIDE 92 mmol/L (101-111); GLUCOSE 80 mg/dL (70-100); POTASSIUM 4.6 mmol/L (3.5-5.0); SODIUM 127 mmol/L (135-145)
[2022-05-19 16:31] LABS: FERRITIN 58.8 ng/mL (11.0-306.8)
[2022-05-19 16:35] LABS: FOLATE 15.35 ng/mL (5.90 - >24.8)
== END 2022-05-19 07:05 | disposition home or self-care (01) ==
LOC: LAB.S 07:04
PROVIDERS: ATTEND Naturopath
DX: N95.1 Menopausal and female climacteric states (principal); E03.9 Hypothyroidism, unspecified; G43.909 Migraine, unspecified, not intractable, without status migrainosus
CPT/HCPCS: 36415; 80053; 80061; 82607; 82670; 82728; 82746; 83721

== ENCOUNTER 2022-07-07 10:24 | Outpatient (CLI) | payer BC ==
--- NOTE | 2022-07-08 12:12 | Mammography Report ---
BILATERAL DIGITAL SCREENING MAMMOGRAM 3D/2D WITH EXAGGERATED CC: 07/07/2022 CLINICAL: Routine screening. Family history of breast cancer. Comparison is made to exams dated: 10/08/2020 mammogram, 01/10/2019 mammogram, 10/29/2016 mammogram, and 01/03/2016 mammogram - [facility]. Both breasts are heterogeneously dense, which may obscure small masses (category c / 51-75% glandula r tissue). There is a biopsy clip in the left breast. No significant masses, calcifications, or other findings are seen in either breast. There has been no significant interval change. IMPRESSION: NEGATIVE There is no mammographic evidence of malignancy. A 1 year screening mammogram is recommended. Based on the Tyrer Cuzick model (a risk assessment model) the patients lifetime risk is 15.0% and he r 10 year risk is 9.2%. According to the ACR, ACS, and NCCN guidelines, an annual breast MRI exam dulce ng with mammogram is recommended if the patients lifetime risk is 20% or greater. This exam was interpreted at Station ID: [id number]. NOTE: For mammograms, a report in lay terms will be sent to the patient. Approximately 15% of breast malignancies will not be visualized mammographically. In the management of a palpable breast mass, a negative mammogram must not discourage biopsy of a clinically suspicious lesion. Electronically Signed By: Joshua Maria M.D. atelmer/[email or web address]:07/07/2022 23:58:14 ACR BI-RADS Category 1: Negative 3341F PARENCHYMAL PATTERN: (D) - The breast(s) demonstrate(s) heterogeneously dense fibroglandular stephenie villalobos. BI-RADS CATEGORY: (1) - 1 RECOMMENDATION: (ANNUAL) - Recommend routine annual screening mammography. [id number] 1 year screening LATERALITY: (B)
== END 2022-07-07 10:25 | disposition home or self-care (01) ==
LOC: DI.S 10:24
PROVIDERS: ATTEND Registered Nurse
DX: Z12.31 Encounter for screening mammogram for malignant neoplasm of breast (principal); Z80.3 Family history of malignant neoplasm of breast

== ENCOUNTER 2022-08-24 13:45 | Outpatient (CLI) | payer BC ==
--- NOTE | 2022-08-24 08:41 | XRAY Report ---
PROCEDURE: Finger(s) LT INDICATIONS: INJURY TO LEFT LONG FINGER TECHNIQUE: AP hand, 2 views of the third finger(s) acquired. COMPARISON: None FINDINGS: There is no evidence for acute fracture or dislocation involving the patient's left third finger. There does appear to be a injury involving the nailbed region. No radiopaque foreign body is seen. No significant degenerative changes are present. There appears to be some soft tissue swelling in the region of the PIP joint. IMPRESSION: 1. No evidence for acute osseous abnormality involving the left third finger. 2. Imaging findings suggestive of an injury involving the nailbed region. 3. Soft tissue swelling in the region of the PIP joint. Reviewed by: Timothy Yo MD on 08/24/2022 8:40 AM PST Approved by: Timothy Yo MD on 08/24/2022 8:40 AM PST Station ID: [id number]
== END 2022-08-24 13:46 | disposition home or self-care (01) ==
LOC: DI.S 13:45
PROVIDERS: ATTEND Physician Assistant
DX: S69.92XA Unspecified injury of left wrist, hand and finger(s), initial encounter (principal)

== ENCOUNTER 2022-11-23 06:55 | Outpatient (CLI) | payer BC ==
[2022-11-23 15:49] LABS: BASOPHILS # (AUTO) 0.1 10^3/uL (0.0-0.1); BASOPHILS % (AUTO) 1.2 %; EOSINOPHILS # (AUTO) 0.3 10^3/uL (0.0-0.7); EOSINOPHILS % (AUTO) 6.2 %; HCT - HEMATOCRIT 43.1 % (37.0-47.0); HGB - HEMOGLOBIN 14.2 g/dL (12.0-16.0); LYMPHOCYTES # (AUTO) 1.1 10^3/uL (1.5-3.5); MEAN CORPUSCULAR HEMOGLOBIN 30.5 pg (27.0-31.0); MEAN CORPUSCULAR HGB CONC 32.9 g/dL (32.0-36.0); MEAN CORPUSCULAR VOLUME 92.5 fL (81.0-99.0); MEAN PLATELET VOLUME 10.2 fL (7.9-10.8); MONOCYTES # (AUTO) 0.4 10^3/uL (0.0-1.0); MONOCYTES % (AUTO) 7.3 %; NEUTROPHILS # (AUTO) 3.3 10^3/uL (1.5-6.6); NEUTROPHILS % (AUTO) 63.9 %; PLT - PLATELET COUNT 263 10^3/uL (130-450); RED BLOOD COUNT 4.66 10^6/uL (4.20-5.40); RED CELL DISTRIBUTION WIDTH 12.4 % (12.0-15.0); WHITE BLOOD COUNT 5.2 x10^3/uL (4.8-10.8)
[2022-11-23 16:52] LABS: ALBUMIN 3.7 g/dL (3.2-5.5); ALBUMIN/GLOBULIN RATIO 1.2 (1.0-2.2); BILIRUBIN,TOTAL 0.8 mg/dL (0.2-1.0); CALCIUM 9.5 mg/dL (8.5-10.3); CREATININE 0.8 mg/dL (0.4-1.0); POTASSIUM 4.6 mmol/L (3.5-5.0); TOTAL PROTEIN 6.9 g/dL (6.7-8.2)
== END 2022-11-23 06:56 | disposition home or self-care (01) ==
LOC: LAB.S 06:55
PROVIDERS: ATTEND Naturopath
DX: E03.9 Hypothyroidism, unspecified (principal); N95.1 Menopausal and female climacteric states; G43.909 Migraine, unspecified, not intractable, without status migrainosus
CPT/HCPCS: 36415; 80053; 82607; 82746; 85025

== ENCOUNTER 2022-12-21 14:16 | Outpatient (CLI) | payer BC ==
[2022-12-21 20:52] LABS: THYROID STIMULATING HORMONE 3.25 uIU/mL (0.34-5.60)
[2022-12-21 20:54] LABS: FREE T3 2.91 pg/mL (2.5-3.9); FREE T4 (FREE THYROXINE) 0.73 ng/dL (0.58-1.64)
[2022-12-21 21:39] LABS: ESTIMATED AVERAGE GLUCOSE 108 mg/dL (70-100); HEMOGLOBIN A1c% 5.4 % (4.27-6.07)
== END 2022-12-21 14:17 | disposition home or self-care (01) ==
LOC: LAB.S 14:16
PROVIDERS: ATTEND Naturopath
DX: R73.09 Other abnormal glucose (principal); N95.1 Menopausal and female climacteric states; E03.9 Hypothyroidism, unspecified
CPT/HCPCS: 36415; 83036; 84439; 84443; 84481

== ENCOUNTER 2023-02-08 08:00 | Outpatient (CLI) | payer BC, MEDICARE ==
[2023-02-08 14:53] LABS: THYROID STIMULATING HORMONE 2.13 uIU/mL (0.34-5.60)
[2023-02-08 14:55] LABS: FREE T4 (FREE THYROXINE) 1.09 ng/dL (0.58-1.64)
[2023-02-08 14:56] LABS: FREE T3 2.82 pg/mL (2.5-3.9)
== END 2023-02-08 23:59 | disposition home or self-care (01) ==
LOC: LAB.S 08:00
PROVIDERS: ATTEND Naturopath
DX: E03.9 Hypothyroidism, unspecified (principal); N95.1 Menopausal and female climacteric states; R73.09 Other abnormal glucose
CPT/HCPCS: 36415; 84439; 84443; 84481

== ENCOUNTER 2023-04-13 08:00 | Outpatient (CLI) | payer BC, MEDICARE ==
[2023-04-13 14:54] LABS: BASOPHILS # (AUTO) 0.1 10^3/uL (0.0-0.1); BASOPHILS % (AUTO) 1.5 %; EOSINOPHILS # (AUTO) 0.3 10^3/uL (0.0-0.7); EOSINOPHILS % (AUTO) 6.4 %; HCT - HEMATOCRIT 42.9 % (37.0-47.0); HGB - HEMOGLOBIN 13.9 g/dL (12.0-16.0); LYMPHOCYTES # (AUTO) 1.2 10^3/uL (1.5-3.5); LYMPHOCYTES % (AUTO) 25.7 %; MEAN CORPUSCULAR HEMOGLOBIN 30.9 pg (27.0-31.0); MEAN CORPUSCULAR HGB CONC 32.4 g/dL (32.0-36.0); MEAN CORPUSCULAR VOLUME 95.3 fL (81.0-99.0); MEAN PLATELET VOLUME 10.2 fL (7.9-10.8); MONOCYTES # (AUTO) 0.4 10^3/uL (0.0-1.0); MONOCYTES % (AUTO) 7.9 %; NEUTROPHILS # (AUTO) 2.7 10^3/uL (1.5-6.6); NEUTROPHILS % (AUTO) 58.3 %; PLT - PLATELET COUNT 268 10^3/uL (130-450); RED CELL DISTRIBUTION WIDTH 12.1 % (12.0-15.0); WHITE BLOOD COUNT 4.7 x10^3/uL (4.8-10.8)
[2023-04-13 15:42] LABS: ALBUMIN/GLOBULIN RATIO 1.6 (1.0-2.2); ALKALINE PHOSPHATASE 34 IU/L (42-121); ALT ALANINE AMINOTRANSFERASE 19 IU/L (10-60); AST ASPARTATE AMINOTRANSFERASE 24 IU/L (10-42); BILIRUBIN,TOTAL 0.8 mg/dL (0.2-1.0); BUN - BLOOD UREA NITROGEN 23 mg/dL (6-20); CALCIUM 9.2 mg/dL (8.5-10.3); CARBON DIOXIDE - CO2 31 mmol/L (21-32); CHLORIDE 104 mmol/L (101-111); CHOL/HDL RATIO 2.6 (<4.4); CHOLESTEROL 193 mg/dL; CREATININE 0.8 mg/dL (0.6-1.3); GFR - MDRD 71 (>89); GLUCOSE 91 mg/dL (74-104); HDL CHOLESTEROL 74 mg/dL; LDL CHOLESTEROL,CALCULATED 106 mg/dL; LDL/HDL RATIO 1.4 (<4.4); POTASSIUM 4.7 mmol/L (3.5-4.5); SODIUM 137 mmol/L (135-145); TOTAL PROTEIN 6.5 g/dL (6.4-8.9); TRIGLYCERIDES 66 mg/dL (48-352); VLDL CHOLESTEROL 13 mg/dL
[2023-04-13 15:53] LABS: FERRITIN 43.2 ng/mL (11.0-306.8)
[2023-04-13 21:25] LABS: ESTIMATED AVERAGE GLUCOSE 108 mg/dL (70-100); HEMOGLOBIN A1c% 5.4 % (4.27-6.07)
[2023-04-14 02:13] LABS: VITAMIN D 25-HYDROXY 71.2 ng/mL (30.0-100.0)
== END 2023-04-13 23:59 | disposition home or self-care (01) ==
LOC: LAB.S 08:00
PROVIDERS: ATTEND Naturopath
DX: E55.9 Vitamin D deficiency, unspecified (principal); N95.1 Menopausal and female climacteric states; E03.9 Hypothyroidism, unspecified; R73.09 Other abnormal glucose
CPT/HCPCS: 36415; 80053; 80061; 82306; 82670; 82728; 83036; 83721; 84439; 84443; 84481; 85025

== ENCOUNTER 2023-07-07 10:00 | Outpatient (CLI) | payer BC, MEDICARE ==
--- NOTE | 2023-07-08 13:40 | Mammography Report ---
BILATERAL DIGITAL SCREENING MAMMOGRAM 3D/2D: 07/07/2023 CLINICAL: Routine screening. Family history of breast cancer. Comparison is made to exams dated: 07/07/2022 mammogram, 10/08/2020 mammogram, 01/10/2019 mammogram, a nd 10/29/2016 mammogram - [facility]. Both breasts are heterogeneously dense, which may obscure small masses (category c / 51-75% glandular tissue). There is a biopsy clip in the left breast. No significant masses, calcifications, or other findings are seen in either breast. There has been no significant interval change. IMPRESSION: NEGATIVE There is no mammographic evidence of malignancy. A 1 year screening mammogram is recommended. Based on the Tyrer Cuzick model (a risk assessment model) the patients lifetime risk is 14.2% and he r 10 year risk is 9.3%. According to the ACR, ACS, and NCCN guidelines, an annual breast MRI exam dulce ng with mammogram is recommended if the patients lifetime risk is 20% or greater. This exam was interpreted at Station ID: [id number]. NOTE: For mammograms, a report in lay terms will be sent to the patient. Approximately 15% of breast malignancies will not be visualized mammographically. In the management of a palpable breast mass, a negative mammogram must not discourage biopsy of a clinically suspicious lesion. Electronically Signed By: Joshua greenfield/john:07/07/2023 11:10:35 letter sent: No_Letter ACR BI-RADS Category 1: Negative 3341F PARENCHYMAL PATTERN: (D) - The breast(s) demonstrate(s) heterogeneously dense fibroglandular stephenie villalobos. BI-RADS CATEGORY: (1) - 1 Mammogram [id number] 1 year screening LATERALITY: (B)
== END 2023-07-07 10:01 | disposition home or self-care (01) ==
LOC: DI.S 10:00
PROVIDERS: ATTEND Registered Nurse
DX: Z12.31 Encounter for screening mammogram for malignant neoplasm of breast (principal); Z80.3 Family history of malignant neoplasm of breast; R92.333 Mammographic heterogeneous density, bilateral breasts

== ENCOUNTER 2023-08-20 10:55 | Outpatient (CLI) | payer BC, MEDICARE ==
[2023-08-20 15:30] LABS: BASOPHILS # (AUTO) 0.1 10^3/uL (0.0-0.1); BASOPHILS % (AUTO) 1.1 %; EOSINOPHILS # (AUTO) 0.2 10^3/uL (0.0-0.7); EOSINOPHILS % (AUTO) 2.8 %; HCT - HEMATOCRIT 42.5 % (37.0-47.0); HGB - HEMOGLOBIN 13.9 g/dL (12.0-16.0); LYMPHOCYTES # (AUTO) 1.3 10^3/uL (1.5-3.5); LYMPHOCYTES % (AUTO) 24.1 %; MEAN CORPUSCULAR HEMOGLOBIN 30.6 pg (27.0-31.0); MEAN CORPUSCULAR HGB CONC 32.7 g/dL (32.0-36.0); MEAN CORPUSCULAR VOLUME 93.6 fL (81.0-99.0); MEAN PLATELET VOLUME 10.4 fL (7.9-10.8); MONOCYTES # (AUTO) 0.4 10^3/uL (0.0-1.0); MONOCYTES % (AUTO) 7.8 %; NEUTROPHILS # (AUTO) 3.4 10^3/uL (1.5-6.6); PLT - PLATELET COUNT 242 10^3/uL (130-450); RED BLOOD COUNT 4.54 10^6/uL (4.20-5.40); RED CELL DISTRIBUTION WIDTH 12.2 % (12.0-15.0); WHITE BLOOD COUNT 5.3 x10^3/uL (4.8-10.8)
[2023-08-20 16:01] LABS: THYROID STIMULATING HORMONE 0.86 uIU/mL (0.34-5.60)
[2023-08-20 16:10] LABS: FERRITIN 37.7 ng/mL (11.0-306.8)
[2023-08-21 07:09] LABS: ESTRADIOL 43.9 pg/mL (0.0-54.7)
== END 2023-08-20 10:56 | disposition home or self-care (01) ==
LOC: LAB.S 10:55
PROVIDERS: ATTEND Naturopath
DX: E55.9 Vitamin D deficiency, unspecified (principal); E03.9 Hypothyroidism, unspecified; N95.1 Menopausal and female climacteric states; R73.09 Other abnormal glucose
CPT/HCPCS: 36415; 82306; 82607; 82670; 82728; 82746; 84439; 84443; 84481; 85025

== ENCOUNTER 2023-10-16 09:15 | Outpatient (CLI) | payer BC, MEDICARE ==
[2023-10-18 10:09] LABS: BUN - BLOOD UREA NITROGEN 28 mg/dL (6-20); CARBON DIOXIDE - CO2 30 mmol/L (21-32); CHLORIDE 100 mmol/L (101-111); CREATININE 0.8 mg/dL (0.6-1.3); GFR - MDRD 71 (>89); GLUCOSE 95 mg/dL (74-104); POTASSIUM 4.2 mmol/L (3.5-4.5); SODIUM 134 mmol/L (135-145)
[2023-10-18 10:10] LABS: ALBUMIN/GLOBULIN RATIO 1.5 (1.0-2.2); ALKALINE PHOSPHATASE 27 IU/L (42-121); ALT ALANINE AMINOTRANSFERASE 27 IU/L (10-60); AST ASPARTATE AMINOTRANSFERASE 29 IU/L (10-42); BILIRUBIN,TOTAL 0.6 mg/dL (0.2-1.0); CALCIUM 9.4 mg/dL (8.5-10.3); TOTAL PROTEIN 6.7 g/dL (6.4-8.9); TRIGLYCERIDES 90 mg/dL (48-352); VLDL CHOLESTEROL 18 mg/dL
[2023-10-18 10:12] LABS: HDL CHOLESTEROL 76 mg/dL
[2023-10-18 10:59] LABS: CHOL/HDL RATIO 2.7 (<4.4); CHOLESTEROL 205 mg/dL; LDL CHOLESTEROL,CALCULATED 111 mg/dL; LDL/HDL RATIO 1.5 (<4.4)
[2023-10-19 08:10] LABS: VITAMIN D 25-HYDROXY 95.9 ng/mL (30.0-100.0)
== END 2023-10-16 09:16 | disposition home or self-care (01) ==
LOC: LAB.S 09:15
PROVIDERS: ATTEND Naturopath
DX: E03.9 Hypothyroidism, unspecified (principal); R73.09 Other abnormal glucose; N95.1 Menopausal and female climacteric states; E55.9 Vitamin D deficiency, unspecified
CPT/HCPCS: 36415; 80048; 80053; 80061; 82306; 82465; 82607; 82670; 82746; 83721

== ENCOUNTER 2024-04-10 10:04 | Outpatient (CLI) | payer BC, MEDICARE ==
[2024-04-10 14:49] LABS: ESTIMATED AVERAGE GLUCOSE 105 mg/dL (70-100); HEMOGLOBIN A1c% 5.3 % (4.27-6.07)
[2024-04-10 15:38] LABS: ALBUMIN 4.5 g/dL (3.2-5.5); ALBUMIN/GLOBULIN RATIO 1.7 (1.0-2.2); BILIRUBIN,TOTAL 0.9 mg/dL (0.2-1.0); CALCIUM 9.8 mg/dL (8.5-10.3); CREATININE 0.9 mg/dL (0.6-1.3); TOTAL PROTEIN 7.2 g/dL (6.4-8.9)
== END 2024-04-10 10:05 | disposition home or self-care (01) ==
LOC: LAB.S 10:04
PROVIDERS: ATTEND Naturopath
DX: E03.9 Hypothyroidism, unspecified (principal); N95.1 Menopausal and female climacteric states; R73.09 Other abnormal glucose
CPT/HCPCS: 36415; 80053; 82670; 83036